=== PATIENT | female | born 1950 | race Caucasian/White ===

== ENCOUNTER 2020-02-26 13:00 | Observation (INO) ==
[2020-02-26] MEDS ORDERED: 0.9 % Sodium Chloride 1,000 ML IVC SCH (15:00)
[2020-02-26] MEDS ORDERED: Piperacillin/Tazobactam 3.375 GM in 0.9 % Sodium Chloride Mini Bag 100 ML IVPB SCH (15:10)
[2020-02-26] MEDS ORDERED: *HR* FentaNYL (PF) 100 MCG/2 ML VIAL ONE (19:15)
[2020-02-26] MEDS ORDERED: *HR* Propofol 200 MG/20 ML VIAL IVP ONE (19:15)
[2020-02-26] MEDS ORDERED: Dexamethasone 4 MG/ML VIAL ONE (19:16)
[2020-02-26] MEDS ORDERED: Ondansetron 4 MG/2 ML VIAL ONE (19:16)
[2020-02-26] MEDS ORDERED: Lidocaine -MPF 2% 2 ML VIAL ONE (19:16)
[2020-02-26] MEDS ORDERED: *HR* Succinylcholine 200 MG/10 ML VIAL IVP ONE (19:16)
[2020-02-26] MEDS ORDERED: *HR* Rocuronium Bromide 50 MG/5 ML VIAL ONE (19:16)
[2020-02-26] MEDS ORDERED: Lidocaine HCL 4 ML Topical Solution (Laryng-O-Jet Kit Sterile Pak) TP ONE ×2 (19:19→20:29)
[2020-02-26] MEDS ORDERED: *HR* HYDROmorphone PF 0.5 MG/0.5 ML SYRINGE IVP PRN (19:21)
[2020-02-26] MEDS ORDERED: Ondansetron 4 MG/2 ML VIAL IVP ONE (19:21)
[2020-02-26] MEDS ORDERED: *HR* OxyCODONE Immed Rel 5 MG TABLET PO PRN (19:21)
[2020-02-26] MEDS ORDERED: *HR* Labetalol 20 MG/4 ML SYRINGE IVP PRN (19:21)
[2020-02-26] MEDS ORDERED: Famotidine 20 MG/2 ML VIAL ONE (19:26)
[2020-02-26] MEDS ORDERED: Acetaminophen IV 1,000 MG/100 ML INFUS..BTL ONE (19:26)
[2020-02-26] MEDS ORDERED: Bupivacaine/EPI 1:200k 0.5%PF 30 ML VIAL ONE (19:36)
[2020-02-26] MEDS ORDERED: Ketorolac 30 MG/ML VIAL ONE (20:34)
[2020-02-26] MEDS ORDERED: *HR* PHENYLEPHRINE 1,000 MCG/10 ML SYRINGE IVP ONE (20:39)
[2020-02-26] MEDS ORDERED: Diclofenac Sodium (24 HR) 100 MG TABLET PO PRN (21:47)
[2020-02-26] MEDS: Diclofenac Sodium (24 HR) 100 MG TABLET PO SCH (22:45)
[2020-02-26] MEDS: Piperacillin/Tazobactam 3.375 GM in 0.9 % Sodium Chloride Mini Bag 100 ML IVPB SCH (23:55)
[2020-02-26] MEDS: Acetaminophen IV 1,000 MG/100 ML INFUS..BTL IVPB SCH (23:55)
[2020-02-26] MEDS: 0.9 % Sodium Chloride 1,000 ML IVC SCH (23:55)
[2020-02-27] MEDS: 0.9 % Sodium Chloride 1,000 ML IVC SCH (04:03)
[2020-02-27] MEDS: Acetaminophen IV 1,000 MG/100 ML INFUS..BTL IVPB SCH ×4 (05:53→23:30)
[2020-02-27] MEDS: Piperacillin/Tazobactam 3.375 GM in 0.9 % Sodium Chloride Mini Bag 100 ML IVPB SCH ×3 (07:50→23:30)
[2020-02-27] MEDS: NIFEdipine XL (24 HR) 60 MG TAB.ER.24 PO SCH (08:05)
[2020-02-27] MEDS: Diclofenac Sodium (24 HR) 100 MG TABLET PO SCH ×2 (08:05→20:11)
[2020-02-27] MEDS ORDERED: Ondansetron 4 MG/2 ML VIAL IVP PRN (10:18)
[2020-02-27] MEDS ORDERED: Scopolamine Patch 1.5 MG PATCH.TD72 TD ONE (10:18)
[2020-02-27] MEDS ORDERED: 0.9 % Sodium Chloride 1,000 ML IVC SCH (14:07)
[2020-02-27] MEDS: Ondansetron 4 MG/2 ML VIAL IVP SCH ×2 (17:19→23:29)
[2020-02-28] MEDS: Ondansetron 4 MG/2 ML VIAL IVP SCH (04:57)
[2020-02-28] MEDS: Acetaminophen IV 1,000 MG/100 ML INFUS..BTL IVPB SCH (04:57)
[2020-02-28 07:03] VITALS: BP 138/75
[2020-02-28] MEDS: NIFEdipine XL (24 HR) 60 MG TAB.ER.24 PO SCH (08:20)
[2020-02-28] MEDS: Diclofenac Sodium (24 HR) 100 MG TABLET PO SCH (08:20)
[2020-02-28] MEDS: Piperacillin/Tazobactam 3.375 GM in 0.9 % Sodium Chloride Mini Bag 100 ML IVPB SCH ×2 (08:21→09:34)
== END 2020-02-28 11:39 | disposition home or self-care (01) ==
LOC: 3ANU
PROVIDERS: ADMIT Surgery; ATTEND Surgery